=== PATIENT | male | born 1975 | race African-American/Black ===

== ENCOUNTER 2016-08-23 09:18 | Emergency (ER) | payer OTHER ==
[2016-08-23 09:26] VITALS: BP 147/91; PULSE 90; TEMP 98; BMI 20.9
--- NOTE | 2016-08-23 09:36 | PDOC ---
History of Present Illness - General Chief Complaint: Wound Stated Complaint: LT HAND PAIN Time Seen by Provider: 08/23/16 09:31 History Source: Patient Exam Limitations: No Limitations - History of Present Illness Initial Comments: 08/23/16 09:33 here for evaluation of wound , status post operative trigger finger release to left palm on August 08. States had dressing and wound glue covering the area. While removing dressing to clean area states dislodged the glue and was concerned about wound infection. Denies redness, fever, swelling, excessive pain however was concerned about the drainage from the site. 08/23/16 09:33 08/23/16 10:12 Timing/Duration: reports: just prior to arrival Severity: Yes: mild Associated Symptoms: reports: denies symptoms Past History - Travel Traveled outside of the country in the last 30 days: No Close contact w/someone who was outside of country & ill: No - Past Medical History Allergies/Adverse Reactions: Allergies Allergy/AdvReac Type Severity Reaction Status Date / Time No Known Allergies Allergy Verified 08/23/16 09:20 Home Medications: Ambulatory Orders NK [No Known Home Medication] 08/23/16 Asthma: Yes - Surgical History Abdominal Surgery: Yes (rt hernia) - Immunization History Td Vaccination: Yes TDAP Vaccination: Yes Immunization Up to Date: Yes - Psycho/Social/Smoking Cessation Hx Anxiety: No Suicidal Ideation: No Smoking Status: No Smoking History: Never smoked Have you smoked in the past 12 months: No Number of Cigarettes Smoked Daily: 0 Hx Alcohol Use: No Drug/Substance Use Hx: No Substance Use Type: None Review of Systems - Review of Systems Able to Perform ROS?: Yes Is the patient limited Yakut proficient: Yes Constitutional: Yes: Symptoms Reported, See HPI, Malaise HEENTM: No: Symptoms Reported Musculoskeletal: Yes: Symptoms Reported, See HPI Integumentary: Yes: Symptoms Reported All Other Systems: Reviewed and Negative *Physical Exam - Vital Signs Last Vital Signs Temp Pulse Resp BP Pulse Ox 98.0 F 90 18 147/91 99 08/23/16 09:19 08/23/16 09:19 08/23/16 09:19 08/23/16 09:19 08/23/16 09:19 - Physical Exam General Appearance: Yes: Nourished, Appropriately Dressed, Apparent Distress HEENT: positive: KATHY, Normal ENT Inspection, TMs Normal, Pharynx Normal Neck: positive: Supple. negative: Lymphadenopathy (R), Lymphadenopathy (L) Respiratory/Chest: positive: Lungs Clear, Normal Breath Sounds Extremity: positive: Normal Capillary Refill, Normal Inspection. negative: Normal Range of Motion (limited secondary to tenderness status post) Integumentary: positive: Normal Color, Other (wound to palm of left hand midpoint with dehisced suture line. Noted some eschar/wound exudate however no evidence of cellulitis. Palm is not red, swollen, or tender to palpation around wound site. Has an opening approximately 1 cm x 0.5 cm but appears to be granulating. 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 Patient will follow-up with surgeon next week *DC/Admit/Observation/Transfer Diagnosis at time of Disposition: Visit for wound check - Discharge Dispostion Disposition: HOME Condition at time of disposition: Stable Admit: No - Referrals Referrals: Emelina Green [Primary Care Provider] - - Patient Instructions Printed Discharge Instructions: Skin Wound Additional Instructions: keep clean and dry until cleared by
== END 2016-08-23 10:15 | disposition home or self-care (01) ==
LOC: JERFT 09:18 → SUPCPDRO 09:18 → JERFT 10:15
DX: T81.31XA Disruption of external operation (surgical) wound, not elsewhere classified, initial encounter (principal)
CPT/HCPCS: 99281-25